=== PATIENT | female | born 1960 | race Caucasian/White ===

== ENCOUNTER 2017-07-22 15:30 | Emergency (ER) | payer SELFPAY ==
--- NOTE | 2017-07-22 16:20 | ED.PDOC ---
History of Present Illness - General Chief Complaint: Problem Stated Complaint: burning with urination Time Seen by Provider: 07/22/17 15:39 - History of Present Illness Initial Comments: 57 Y/O FEMALE, C/O CHEST AND ABD PAIN INTERMITTENT X 3 MONTHS, WORSE WITH COUGH , BREATHING, MOVEMENT. PAIN IS DIFFUSE IN THE CHEST AND ABDOMEN, RADIATES TO THE BACK. HAS SOME SOME COUGH WITH YELLOW PHLEGM, SINUS CONGESTION, SOB, OCC LUE PAIN, DYSURIA, FEELS LIGHTHEADED AND WEAK. DENIES FEVER, N/V/D, PEDAL EDEMA , FOCAL STS Allergies/Adverse Reactions: Allergies Codeine Allergy (Verified 07/22/17 16:01) Morphine Allergy (Verified 07/22/17 16:01) Home Medications: Ambulatory Orders Ciprofloxacin [Cipro] 500 mg PO BID 7 Days tab 02/04/16 Pantoprazole Tablet [Protonix] 40 mg PO DAILY #30 tab 02/04/16 Tramadol HCl [Ultram] 50 mg PO BID 02/04/16 Review of Systems - Review of Systems Constitutional: States: weakness. Denies: fever EENTM: States: nose congestion. Denies: eye pain, blurred vision, tearing, double vision, ear pain, ear discharge, nose pain, throat pain Respiratory: States: cough, short of breath. Denies: orthopnea, stridor, wheezing Cardiology: States: chest pain. Denies: edema, palpitations, syncope Gastrointestinal/Abdominal: States: abdominal pain. Denies: constipation, diarrhea, nausea, vomiting Genitourinary: States: dysuria. Denies: discharge, frequency, hematuria Musculoskeletal: States: back pain, muscle pain. Denies: joint pain, joint swelling Skin: States: no symptoms reported Neurological: States: weakness. Denies: headache, numbness, paresthesia, tingling, tremors Endocrine: States: no symptoms reported Hematologic/Lymphatic: States: no symptoms reported Past Medical History (General) - Patient Medical History Hx Seizures: No Hx Stroke: No Hx Dementia: No Hx Asthma: Yes - emphysemia Hx of COPD: Yes Hx Cardiac Disorders: No Hx Congestive Heart Failure: No Hx Pacemaker: No Hx Hypertension: No Hx Thyroid Disease: No Hx Diabetes: No Hx Gastroesophageal Reflux: No Hx Renal Disease: No Hx of HIV: No Hx MRSA: No Surgical History: no surgical history - Vaccination History Hx Tetanus, Diphtheria Vaccination: No Hx Influenza Vaccination: No Hx Pneumococcal Vaccination: No - Social History Hx Tobacco Use: Yes Hx Alcohol Use: No - Female History Patient is a Female of Child Bearing Age (10 -59 yrs old): No Patient : No Family Medical History - Family History Mother Family History: No Known Physical Exam - Physical Exam General Appearance: Alert, No apparent distress Eye Exam: bilateral normal Ears, Nose, Throat: hearing grossly normal, normal ENT inspection, normal pharynx Neck: non-tender, full range of motion, supple, normal inspection Respiratory: lungs clear, normal breath sounds, no respiratory distress, no accessory muscle use, respiratory distress, other - DIFFUSE TENDERNESS TO PALPATION Cardiovascular/Chest: normal peripheral pulses, regular rate, rhythm, no edema, no gallop, no JVD, no murmur Gastrointestinal/Abdominal: normal bowel sounds, no organomegaly, no pulsatile mass, tenderness - DIFFUSE TENDERNESS TO PALPATION, SL VOLUNTARY GUARDING, NO REBOUND Back Exam: normal inspection, no CVA tenderness Extremity: normal range of motion, non-tender, normal inspection, no pedal edema Neurologic: manager social II-XII nml as tested, no motor/sensory deficits, alert, normal mood/affect, oriented x 3 Skin Exam: normal color, warm/dry Lymphatic: no adenopathy Progress - Results/Orders Results/Orders: Laboratory Tests 07/22/17 07/22/17 07/22/17 16:09 16:09 16:09 WBC 14.6 H RBC 5.32 Hgb 15.9 Hct 47.3 H MCV 88.9 MCH 30.0 MCHC 33.7 RDW 13.1 Plt Count 338 MPV 8.5 Absolute Neuts (auto) 10.80 H Absolute Lymphs (auto) 2.60 Absolute Monos (auto) 1.00 H Absolute Eos (auto) 0.10 Absolute Basos (auto) 0.10 Neutrophils % 73.8 Lymphocytes % 17.8 L Monocytes % 6.9 Eosinophils % 0.8 L Basophils % 0.7 Sodium 134 L Potassium 4.1 Chloride 98 L Carbon Dioxide 27 Anion Gap 13.1 BUN 15 Creatinine 0.63 BUN/Creatinine Ratio 23.8 H Random Glucose 94 Serum Osmolality 268.8 L Calcium 9.4 Total Bilirubin 0.5 AST 20 ALT 12 Alkaline Phosphatase 70 Troponin I < 0.02 B-Natriuretic Peptide 21.5 Serum Total Protein 8.3 H Albumin 4.1 Globulin 4.2 H Albumin/Globulin Ratio 1.0 L Amylase 37 Lipase 28 Urine Color Urine Appearance Urine pH Ur Specific [place] Urine Protein Urine Glucose (UA) Urine Ketones Urine Blood Urine Nitrite Urine Bilirubin Urine Urobilinogen Ur Leukocyte Esterase Urine RBC Urine WBC Ur Epithelial Cells Urine Bacteria 07/22/17 16:09 WBC RBC Hgb Hct MCV MCH MCHC RDW Plt Count MPV Absolute Neuts (auto) Absolute Lymphs (auto) Absolute Monos (auto) Absolute Eos (auto) Absolute Basos (auto) Neutrophils % Lymphocytes % Monocytes % Eosinophils % Basophils % Sodium Potassium Chloride Carbon Dioxide Anion Gap BUN Creatinine BUN/Creatinine Ratio Random Glucose Serum Osmolality Calcium Total Bilirubin AST ALT Alkaline Phosphatase Troponin I B-Natriuretic Peptide Serum Total Protein Albumin Globulin Albumin/Globulin Ratio Amylase Lipase Urine Color Yellow Urine Appearance Cloudy Urine pH 6.0 Ur Specific [place] 1.020 Urine Protein 30 Urine Glucose (UA) Negative Urine Ketones 40 H Urine Blood Moderate H Urine Nitrite Positive H Urine Bilirubin Small H Urine Urobilinogen 2.0 H Ur Leukocyte Esterase Large H Urine RBC 10-20 H Urine WBC >50 H Ur Epithelial Cells 3-5 Urine Bacteria 3+ H ACUTE ABD XR: NORMAL CARDIOMEDIASTINAL SILHOUETTE. SEVERE EMPHYSEMA, NO INFILTRAT. NO BOWEL OBSTRUCTION. PAUCITY OF BOWEL GAS RUQ AND MIDABDOMEN WHICH COULD BE MASS EFFECT. THE BOWEL IS ON THE L HALF AND LOWER ABDOMEN. CONSIDER CT EVALUATION. CT IS DOWN, WILL TRANSFER TO [facility], , ACCEPTIONG PHYSICIAN DR DONNELLY - EKG/XRAY/CT Comments: NSR 67X', AQRS: 74 QTC 452 POOR PROGRESSION OF R WAVE, NO STT CHANGES Departure - Departure Clinical Impression: Abdominal pain Qualifiers: Abdominal location: generalized Qualified Code(s): R10.84 - Generalized abdominal pain COPD (chronic obstructive pulmonary disease) Qualifiers: COPD type: emphysema Acute bronchitis Qualifiers: Bronchitis organism: unspecified organism Qualified Code(s): J20.9 - Acute bronchitis, unspecified UTI (urinary tract infection) Qualifiers: Urinary tract infection type: acute cystitis Disposition: Transfer to Hospital Departure Forms: ED Discharge - Pt. Copy, Patient Portal Self Enrollment Referrals: Yudy Rivera BROADLOOM WEAVER [Primary Care Provider] - 1-2 Weeks Home Medications: Ambulatory Orders Ciprofloxacin [Cipro] 500 mg PO BID 7 Days tab 02/04/16 Pantoprazole Tablet [Protonix] 40 mg PO DAILY #30 tab 02/04/16 Tramadol HCl [Ultram] 50 mg PO BID 02/04/16
--- NOTE | 2017-07-22 16:26 | RAD ---
EXAM DESCRIPTION: Obstructive series, 3 radiographs CLINICAL HISTORY: Abdomen pain. Chest pain. Cough and shortness of breath FINDINGS/ IMPRESSION: Normal cardiomediastinal silhouette. Severe emphysema with hyperinflation. Mild biapical pleural thickening. No pulmonary edema or focal infiltrate Scattered bowel gas unremarkable. No diagnostic evidence of mechanical bowel obstruction. Paucity of bowel gas right upper quadrant and midabdomen which could be mass effect. The bowel gas is on the left half the abdomen and lower abdomen. Consider CT evaluation Electronically signed by: Herbie Gray MD 07/22/2017 4:23 PM CDT
[2017-07-22] MEDS ORDERED: KETOROLAC TROMETHAMINE INJ 60 MG/2 ML VIAL IM ONE (16:47)
[2017-07-22] MEDS ORDERED: cefTRIAXone SODIUM 1 GM VIAL IM ONE ×2 (17:13)
[2017-07-22 17:35] VITALS: BP 140/80; TEMP 96.9; O2SAT 99
== END 2017-07-22 17:30 | disposition short-term general hospital (02) ==
LOC: ER 15:30
DX: N30.00 Acute cystitis without hematuria (principal); R10.84 Generalized abdominal pain; J43.9 Emphysema, unspecified; J20.9 Acute bronchitis, unspecified; Z87.891 Personal history of nicotine dependence
CPT/HCPCS: 36415; 74019; 80053; 81001; 82150; 83690; 83880; 84484; 85025; 87086; 87088; 87186; 93005; J0696; J1885

== ENCOUNTER 2018-10-17 10:48 | Emergency (ER) | payer OTHER, SELFPAY ==
[2018-10-17] MEDS ORDERED: ALUM & MAG HYDROX-SIMETHICONE 30 ML, LIDOCAINE VISCOUS 2% 15 ML PO ONE ×2 (11:06)
[2018-10-17] MEDS ORDERED: IPRATROPIUM/ALBUTEROL 3 ML VIAL NEB ONE (11:06)
[2018-10-17] MEDS ORDERED: LIDOCAINE HCL 2% (MOUTH-THROAT) 15 ML UD ONE (11:11)
[2018-10-17] MEDS ORDERED: ALUM & MAG HYDROX-SIMETHICONE 30 ML UD ONE (11:11)
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
--- NOTE | 2018-10-17 11:27 | RAD ---
EXAM DESCRIPTION: Chest,2 Views CLINICAL HISTORY: cough, chest pain, COMPARISON: Previous study February 04, 2016 TECHNIQUE: PA/lateral FINDINGS: There is no acute appearing cardiac or pulmonary abnormality. Heart size is normal with normal pulmonary vascularity. No pleural effusion or pneumothorax. Lungs are hyperexpanded with no consolidating infiltrate. Lateral view shows intact sternum and T-spine. IMPRESSION: Hyperexpanded lungs. No consolidating infiltrate. Electronically signed by: Gumaro Farah MD 10/17/2018 11:25 AM CDT
--- NOTE | 2018-10-17 11:41 | CT ---
EXAM DESCRIPTION: Abdoment/Pelvis w/o Contrast CLINICAL HISTORY: pain COMPARISON: None TECHNIQUE: Noncontrast transaxial CT images of the abdomen and pelvis are obtained. This exam was performed according to our departmental dose-optimization program, which includes automated exposure control, adjustment of the mA and/or kV according to patient size and/or use of iterative reconstruction technique . FINDINGS: Visualized lung bases show mild emphysematous changes. Given the limitations of a noncontrast exam the liver, spleen, pancreas, adrenal glands, and gallbladder are unremarkable. Mild calcific atherosclerotic disease is seen. No nephrolithiasis. Mildly prominent calyces in the upper pole of the right kidney are seen. No ureteral calcification or obstruction. The ureters are difficult to identify because of patient body habitus. Urinary bladder is contracted and not well evaluated. Uterus is unremarkable. No abnormal adnexal mass. Increased attenuation stool is seen throughout the colon. The appendix is not identified. No obvious inflammatory changes are seen in the pelvis. Stomach is poorly distended but unremarkable. No small bowel obstruction or obvious bowel wall thickening. Mild scattered diverticuli throughout the colon without associated inflammatory changes or fluid collections. No pathologic lymphadenopathy. Osseous structures show no aggressive bony lesions. Mild degenerative changes of the spine. IMPRESSION: No acute findings on noncontrast CT of the abdomen and pelvis. Exam is limited by lack of IV contrast and patient body habitus with lack of intra-abdominal fat planes. Hyperdense increased stool throughout colon suggests constipation or obstipation. Mild colon diverticulosis without CT evidence of diverticulitis. Possible ill-defined cortical or parapelvic cyst in the upper pole of the right kidney Electronically signed by: Ezekiel Du MD 10/17/2018 11:39 AM CDT
[2018-10-17 13:18] VITALS: BP 134/77; TEMP 97.8; O2SAT 97
== END 2018-10-17 12:47 | disposition home or self-care (01) ==
LOC: ER 10:48
DX: N30.00 Acute cystitis without hematuria (principal); K29.00 Acute gastritis without bleeding; R07.2 Precordial pain; R20.2 Paresthesia of skin; J43.9 Emphysema, unspecified; F17.210 Nicotine dependence, cigarettes, uncomplicated; Z88.5 Allergy status to narcotic agent; Z86.74 Personal history of sudden cardiac arrest
CPT/HCPCS: 36416; 71046; 74176; 80053; 81001; 82150; 83690; 83735; 85025; 87086; 93005; 94640; J7620

== ENCOUNTER 2018-10-31 15:17 | Emergency (ER) | payer SELFPAY ==
[2018-10-31] MEDS ORDERED: ONDANSETRON ODT 8 MG TAB SL ONE (15:21)
[2018-10-31] MEDS ORDERED: SODIUM CHLORIDE 0.9% 1000ML 1,000 ML IVS ONE (15:23)
--- NOTE | 2018-10-31 15:59 | RAD ---
EXAM DESCRIPTION: Abdomen Series CLINICAL HISTORY: abd and chest pain 2 days COMPARISON: 22 July 2017 TECHNIQUE: PA chest with supine and upright views of the abdomen] FINDINGS: The lungs are clear. The heart is normal size. There is an unremarkable bowel gas pattern. There is no mass or calculus. IMPRESSION: Normal acute abdomen series Electronically signed by: Arash Navarro MD 10/31/2018 3:56 PM CDT
[2018-10-31] MEDS ORDERED: ALUM & MAG HYDROX-SIMETHICONE 30 ML, LIDOCAINE VISCOUS 2% 15 ML PO ONE ×2 (16:42)
[2018-10-31] MEDS ORDERED: ALUM & MAG HYDROX-SIMETHICONE 30 ML UD ONE (17:32)
[2018-10-31] MEDS ORDERED: MAGNESIUM HYDROXIDE 30 ML UD PO ONE (17:32)
[2018-10-31] MEDS ORDERED: LIDOCAINE HCL 2% (MOUTH-THROAT) 15 ML UD ONE (17:32)
[2018-10-31] MEDS ORDERED: cefTRIAXone SODIUM 1 GM in SODIUM CHL 0.9% 50ML MIN-BAG+ 50 ML IVPB ONE (18:35)
[2018-10-31] MEDS ORDERED: cefTRIAXone SODIUM 1 GM VIAL ONE (18:50)
[2018-10-31] MEDS ORDERED: SODIUM CHL 0.9% 50ML MIN-BAG+ 50 ML IVPB ONE (18:50)
[2018-10-31 19:04] VITALS: O2SAT 99
[2018-10-31] MEDS ORDERED: SUCRALFATE 1 GM/10 ML 1 GM UD PO ONE (19:27)
[2018-10-31] MEDS ORDERED: OMEPRAZOLE CAP 20 MG CAP PO ONE (19:27)
--- NOTE | 2018-10-31 19:31 | ED.PDOC ---
History of Present Illness - General Chief Complaint: Chest Pain/OR Stated Complaint: Chest discomfort Time Seen by Provider: 10/31/18 15:21 Source: patient Exam Limitations: no limitations - History of Present Illness Initial Comments: the patient is a 58-year-old female presenting to the emergency room secondary to a recurrence of her epigastric and substernal pain. The patient has been having this discomfort for 2-3 weeks. It got worse today after she did a urease breath test for diagnosis of a possible gastric ulcer. She is not yet on any stomach medications. She does have a known urinary tract infection and has apparently been on the wrong antibiotic. She does already have an antibiotic called in to start taking but she has not yet started taking it. The patient is very thin but she apparently has always been quite then according to her. She denies any history of coronary artery disease. She denies any substance abuse. She did have a CT scan done here about 2 weeks ago showing some significant constipation but really no other acute pathology. She has had intermittent nausea and vomiting. No syncope. She has not had any endoscopies. No evidence of any GI bleed. Symptoms did significantly improve with a GI cocktail. Timing/Duration: intermittent Severity: moderate Improving Factors: medication Worsening Factors: nothing Associated Symptoms: chest pain, loss of appetite, nausea/vomiting Allergies/Adverse Reactions: Allergies Codeine Allergy (Verified 07/22/17 16:01) Morphine Allergy (Verified 07/22/17 16:01) Home Medications: Ambulatory Orders Sucralfate Tab [Carafate Tab] 1 gm PO TID #30 tablet 10/17/18 Sulfa/Trimeth 800/160 (Ds) Tab [Bactrim DS] 1 tablet PO BID #14 tab 10/17/18 Amoxicillin & Pot Clavulanate [Augmentin Tab] 875 mg PO BID #20 tab 10/31/18 Clarithromycin 500 mg PO BID #10 tab 10/31/18 Omeprazole 40 mg PO BID #60 cap 10/31/18 Sucralfate Tab [Carafate Tab] 1 gm PO QID #120 tab 10/31/18 Review of Systems - Review of Systems Constitutional: States: no symptoms reported EENTM: States: no symptoms reported Respiratory: States: no symptoms reported Cardiology: States: chest pain Gastrointestinal/Abdominal: States: abdominal pain, constipation, nausea, vomiting Genitourinary: States: dysuria, frequency Musculoskeletal: States: no symptoms reported Skin: States: no symptoms reported Neurological: States: no symptoms reported Endocrine: States: no symptoms reported All other Systems: No Change from Baseline Past Medical History (General) - Patient Medical History Hx Seizures: No Hx Stroke: No Hx Dementia: No Hx Asthma: Yes - emphysemia Hx of COPD: Yes Hx Cardiac Disorders: No Hx Congestive Heart Failure: No Hx Pacemaker: No Hx Hypertension: No Hx Thyroid Disease: No Hx Diabetes: No Hx Gastroesophageal Reflux: No Hx Renal Disease: No Hx of HIV: No Hx MRSA: No - Vaccination History Hx Tetanus, Diphtheria Vaccination: No Hx Influenza Vaccination: No Hx Pneumococcal Vaccination: No - Social History Hx Tobacco Use: Yes Hx Alcohol Use: No - Female History Patient : No Family Medical History - Family History Mother Family History: No Known Physical Exam - Physical Exam General Appearance: Alert, Anxious Eye Exam: bilateral normal Ears, Nose, Throat: hearing grossly normal, normal ENT inspection, normal pharynx Neck: full range of motion, supple Respiratory: lungs clear, normal breath sounds, no respiratory distress, no accessory muscle use Cardiovascular/Chest: normal peripheral pulses, no edema, tachycardia - mild sinus tachycardia Peripheral Pulses: radial,right: 2+, radial,left: 2+, dorsalis pedis,right: 2+, dorsalis pedis,left: 2+ Gastrointestinal/Abdominal: other - epigastric discomfort palpation. No definite rebound. No definite palpable mass. The patient is very thin. Rectal Exam: deferred Back Exam: no CVA tenderness, no vertebral tenderness Extremity: normal range of motion, non-tender, normal inspection, no pedal edema, normal capillary refill Neurologic: service correspondent II-XII nml as tested, alert, normal mood/affect, oriented x 3 Skin Exam: normal color Comments: Vital Signs - 24 hr 10/31/18 10/31/18 10/31/18 15:17 17:43 18:30 Pulse Rate 87 87 Pulse Rate [ 118 H 63 76 Apical] Respiratory 28 H 22 20 Rate Blood Pressure 97/58 121/71 120/75 [Right Arm] O2 Sat by Pulse 97 100 99 Oximetry Progress - Progress Progress: 10/31/18 19:35 the patient is a 58-year-old female presenting with substernal and epigastric pain. This has been an ongoing issue for the last couple of weeks. She did apparently undergo a test for H. pylori today but we do not have results for it. She does also have an inadequately treated urinary tract infection that grew out Escherichia coli not sensitive to her original antibiotic. She also has very significant constipation which is likely worsening her symptoms. For the above issues the patient is going to be placed on omeprazole 40 mg twice daily, Carafate 1 g 4 times a day, Maalox as needed, Augmentin twice daily for 10 days and clarithromycin twice daily for 5 days. She is to keep herself well- hydrated and eat a high-fiber diet. If her symptoms are not improving with the above measures, then she needs to have additional workup likely including endoscopy, and other tests as appropriate at the time. She needs to follow up with her primary care doctor before the weekend. ER warnings were given. - Results/Orders Results/Orders: 10/31/18 15:22 Telemetry .CONTINUOUS normal sinus rhythm to sinus tachycardia BLOOD CULTURE Stat 10/31/18 15:30 EKG STAT EKG shows normal sinus rhythm at 62 bpm. Right axis deviation. No ST segment or T-wave changes indicative of acute ischemia. Normal QT interval. Short DC. Abdominal x-ray shows a large amount of stool in the lower large intestine. This is consistent with her CT scan from 2 weeks ago as well. Laboratory Results - last 24 hr 10/31/18 10/31/18 10/31/18 15:45 15:45 15:45 WBC 16.8 H RBC 4.89 Hgb 15.1 Hct 44.1 MCV 90.2 MCH 30.9 MCHC 34.3 RDW 13.0 Plt Count 444 H MPV 8.5 Absolute Neuts (auto) 13.40 H Absolute Lymphs (auto) 2.10 Absolute Monos (auto) 1.10 H Absolute Eos (auto) 0.00 Absolute Basos (auto) 0.00 Neutrophils % 80.2 H Lymphocytes % 12.8 L Monocytes % 6.5 Eosinophils % 0.2 L Basophils % 0.3 PT 9.9 INR 0.99 PTT (SP) 24.3 D-Dimer, Quantitative 1.30 H* Sodium 136 Potassium 4.4 Chloride 101 Carbon Dioxide 22 Anion Gap 17.4 BUN 14 Creatinine 0.62 BUN/Creatinine Ratio 22.6 H Random Glucose 89 Serum Osmolality 271.9 L Lactic Acid Calcium 9.5 Magnesium 2.1 Total Bilirubin 0.4 AST 25 ALT 11 Alkaline Phosphatase 75 Creatine Kinase 66 CK-MB (CK-2) 1.7 CK-MB (CK-2) % Not Reportable Troponin I < 0.02 B-Natriuretic Peptide 23.0 Serum Total Protein 8.1 Albumin 3.7 Globulin 4.4 H Albumin/Globulin Ratio 0.8 L Amylase 55 Lipase 54 H TSH 2.24 Urine Color Urine Appearance Urine pH Ur Specific [place] Urine Protein Urine Glucose (UA) Urine Ketones Urine Blood Urine Nitrite Urine Bilirubin Urine Urobilinogen Ur Leukocyte Esterase Urine RBC Urine WBC Ur Epithelial Cells Amorphous Sediment Urine Bacteria Urine HCG, Qual Urine Opiates Screen Urine Barbiturates Ur Phencyclidine Scrn U Amphetamin/Meth Scrn U Benzodiazepines Scrn U Cocaine Metab Screen U Cannabinoids Screen 10/31/18 10/31/18 10/31/18 15:56 18:10 18:10 WBC RBC Hgb Hct MCV MCH MCHC RDW Plt Count MPV Absolute Neuts (auto) Absolute Lymphs (auto) Absolute Monos (auto) Absolute Eos (auto) Absolute Basos (auto) Neutrophils % Lymphocytes % Monocytes % Eosinophils % Basophils % PT INR PTT (SP) D-Dimer, Quantitative Sodium Potassium Chloride Carbon Dioxide Anion Gap BUN Creatinine BUN/Creatinine Ratio Random Glucose Serum Osmolality Lactic Acid 1.6 Calcium Magnesium Total Bilirubin AST ALT Alkaline Phosphatase Creatine Kinase CK-MB (CK-2) CK-MB (CK-2) % Troponin I B-Natriuretic Peptide Serum Total Protein Albumin Globulin Albumin/Globulin Ratio Amylase Lipase TSH Urine Color Urine Appearance Urine pH Ur Specific [place] Urine Protein Urine Glucose (UA) Urine Ketones Urine Blood Urine Nitrite Urine Bilirubin Urine Urobilinogen Ur Leukocyte Esterase Urine RBC Urine WBC Ur Epithelial Cells Amorphous Sediment Urine Bacteria Urine HCG, Qual Negative Urine Opiates Screen Negative Urine Barbiturates Negative Ur Phencyclidine Scrn Negative U Amphetamin/Meth Scrn Negative U Benzodiazepines Scrn Negative U Cocaine Metab Screen Negative U Cannabinoids Screen Negative 10/31/18 10/31/18 18:10 18:47 WBC RBC Hgb Hct MCV MCH MCHC RDW Plt Count MPV Absolute Neuts (auto) Absolute Lymphs (auto) Absolute Monos (auto) Absolute Eos (auto) Absolute Basos (auto) Neutrophils % Lymphocytes % Monocytes % Eosinophils % Basophils % PT INR PTT (SP) D-Dimer, Quantitative Sodium Potassium Chloride Carbon Dioxide Anion Gap BUN Creatinine BUN/Creatinine Ratio Random Glucose Serum Osmolality Lactic Acid Calcium Magnesium Total Bilirubin AST ALT Alkaline Phosphatase Creatine Kinase 77 CK-MB (CK-2) 2.5 CK-MB (CK-2) % Not Reportable Troponin I < 0.02 B-Natriuretic Peptide Serum Total Protein Albumin Globulin Albumin/Globulin Ratio Amylase Lipase TSH Urine Color Yellow Urine Appearance Cloudy Urine pH 5.5 Ur Specific [place] >= 1.030 Urine Protein 30 Urine Glucose (UA) Negative Urine Ketones 40 H Urine Blood Moderate H Urine Nitrite Positive H Urine Bilirubin Negative Urine Urobilinogen 0.2 Ur Leukocyte Esterase Small H Urine RBC 3-5 H Urine WBC 10-20 H Ur Epithelial Cells 3-5 Amorphous Sediment 2+ Urine Bacteria 4+ H Urine HCG, Qual Urine Opiates Screen Urine Barbiturates Ur Phencyclidine Scrn U Amphetamin/Meth Scrn U Benzodiazepines Scrn U Cocaine Metab Screen U Cannabinoids Screen Departure - Departure Clinical Impression: Cystitis Gastritis Qualifiers: Gastritis type: unspecified gastritis Chronicity: unspecified Gastritis bleeding: without bleeding Qualified Code(s): K29.70 - Gastritis, unspecified, without bleeding Constipation Qualifiers: Constipation type: unspecified constipation type Qualified Code(s): K59.00 - Constipation, unspecified Disposition: Discharge to Home or Self Care Condition: Fair Departure Forms: ED Discharge - Pt. Copy, Patient Portal Self Enrollment Instructions: Gastritis (DC), Constipation, Adult (DC), Urinary Tract Infection, Adult (DC) Diet: bland diet Activity: increase activity as tolerated Referrals: Yudy Rivera CERTIFIED REHABILITATION COUNSELOR [Primary Care Provider] - 1-5 Days Prescriptions: Amoxicillin & Pot Clavulanate [Augmentin Tab] 875 mg PO BID #20 tab Clarithromycin 500 mg PO BID #10 tab Omeprazole 40 mg PO BID #60 cap Sucralfate Tab [Carafate Tab] 1 gm PO QID #120 tab Home Medications: Ambulatory Orders Sucralfate Tab [Carafate Tab] 1 gm PO TID #30 tablet 10/17/18 Sulfa/Trimeth 800/160 (Ds) Tab [Bactrim DS] 1 tablet PO BID #14 tab 10/17/18 Amoxicillin & Pot Clavulanate [Augmentin Tab] 875 mg PO BID #20 tab 10/31/18 Clarithromycin 500 mg PO BID #10 tab 10/31/18 Omeprazole 40 mg PO BID #60 cap 10/31/18 Sucralfate Tab [Carafate Tab] 1 gm PO QID #120 tab 10/31/18 Additional Instructions: the patient is a 58-year-old female presenting with substernal and epigastric pain. This has been an ongoing issue for the last couple of weeks. She did apparently undergo a test for H. pylori today but we do not have results for it. She does also have an inadequately treated urinary tract infection that grew out Escherichia coli not sensitive to her original antibiotic. She also has very significant constipation which is likely worsening her symptoms. For the above issues the patient is going to be placed on omeprazole 40 mg twice da carol, Carafate 1 g 4 times a day, Maalox as needed, Augmentin twice daily for 10 days and clarithromycin twice daily for 5 days. She is to keep herself well- hydrated and eat a high-fiber diet. If her symptoms are not improving with the above measures, then she needs to have additional workup likely including endoscopy, and other tests as appropriate at the time. She needs to follow up with her primary care doctor before the weekend. ER warnings were given.
[2018-10-31 20:03] VITALS: BP 120/76; TEMP 98
== END 2018-10-31 20:00 | disposition home or self-care (01) ==
LOC: ER 15:17
DX: N30.90 Cystitis, unspecified without hematuria (principal); K29.70 Gastritis, unspecified, without bleeding; K59.00 Constipation, unspecified; R07.89 Other chest pain; J43.9 Emphysema, unspecified; Z87.891 Personal history of nicotine dependence; Z88.5 Allergy status to narcotic agent; Z79.899 Other long term (current) drug therapy
CPT/HCPCS: 36415; 74019; 80053; 80307; 81001; 81025; 82150; 82550; 82553; 83605; 83690; 83735; 83880; 84443; 84484; 85025; 85379; 85610; 85730; 87086; 93005; J0696; J7030; J7050